=== PATIENT | female | born 1970 | race Hispanic/Latino ===

== ENCOUNTER 2019-11-11 21:49 | Emergency (ER) | payer OTHER ==
[2019-11-11] MEDS ORDERED: ASPIRIN 325 MG TABLET ONE (22:00)
== END 2019-11-12 01:41 | disposition home or self-care (01) ==
LOC: EDH 21:49
DX: R07.89 Other chest pain (principal)

== ENCOUNTER 2022-08-11 00:04 | Inpatient (IN) | payer OTHER ==
[~2022-08-11] VITALS: Ht 152.4 cm; Wt 56.4 kg
[2022-08-11] MEDS ORDERED: ONDANSETRON 4MG INJ IVP ONE ×2 (00:30→03:00)
[2022-08-11] MEDS ORDERED: FAMOTIDINE 20MG VIAL IV ONE ×2 (00:30→00:34)
[2022-08-11] MEDS ORDERED: LACTATED RINGERS 1000ML 1,000 ML IV ONE (00:30)
[2022-08-11] MEDS ORDERED: MORPHINE 2 MG SYG IVP ONE (00:30)
[2022-08-11] MEDS ORDERED: ONDANSETRON 4MG INJ ONE (00:34)
[2022-08-11] MEDS ORDERED: MORPHINE 2 MG SYG ONE (00:34)
[2022-08-11 01:00] LABS: BASOPHILS % (AUTO) 0.5 % (0.0-5.0); EOSINOPHILS % (AUTO) 0.5 % (0.0-8.0); LYMPHOCYTES % (AUTO) 20.5 % (21.0-51.0); MEAN CORPUSCULAR HGB CONC 34.2 g/dL (32.0-36.0); MEAN CORPUSCULAR VOLUME 81.7 fL (79-99); MONOCYTES % (AUTO) 4.5 % (3.0-13.0); NEUTROPHILS % (AUTO) 73.7 % (40.0-77.0); PLATELET COUNT (AUTO) 334 K/uL (130-400); RED BLOOD CELL COUNT(AUTO) 4.65 MIL/uL (4.00-5.50); RED CELL DISTRIBUTION WIDTH 12.8 % (11.0-15.5); WHITE BLOOD COUNT (AUTO) 7.8 K/uL (4.8-10.8)
[2022-08-11 01:11] LABS: CREATININE 0.6 mg/dL (0.5-1.5); POTASSIUM 4.1 mmol/L (3.5-5.1)
[2022-08-11 01:15] LABS: ALBUMIN 4.2 g/dL (3.5-5.0)
[2022-08-11] MEDS ORDERED: NITROGLYCERIN 0.4 MG SL TAB SL ONE (01:29)
[2022-08-11 01:33] LABS: BILIRUBIN,URINE NEGATIVE (NEGATIVE); COLOR,URINE LIGHT-YELLOW (YELLOW); GLUCOSE, URINE (UA) NEGATIVE (NEGATIVE); KETONES,URINE 5 mg/dL (NEGATIVE); LEUKOCYTE ESTERASE ,URINE NEGATIVE Leu/uL (NEGATIVE); NITRATE,URINE NEGATIVE (NEGATIVE); OCCULT BLOOD,URINE NEGATIVE (NEGATIVE); PROTEIN,URINE NEGATIVE (NEGATIVE); UROBILINOGEN,URINE 0.2 mg/dL (0.2-1.0)
[2022-08-11 01:35] LABS: APPEARANCE,URINE SLIGHTLY CLOUDY (CLEAR)
[2022-08-11] MEDS ORDERED: IOHEXOL 350 MG/ML 100ML INFUS..BTL IV ONE (01:43)
[2022-08-11] MEDS: NITROGLYCERIN 0.4 MG SL TAB SL PRN ×2 (01:45→03:35)
[2022-08-11 01:53] LABS: BACTERIA,URINE RARE /HPF (None Seen); MUCUS,URINE RARE LPF (None Seen); SQUAMOUS EPITHELIAL CELL,UR RARE /HPF (0-2)
[2022-08-11] MEDS ORDERED: HYDROMORPHONE 0.5 MG SYG (0.5MG/0.5ML) IVP ONE (03:00)
[2022-08-11 03:08] LABS: AMPHET/METH SCREEN,URINE NEGATIVE (NEGATIVE); BARBITURATE SCREEN, URINE NEGATIVE (NEGATIVE); BENZODIAZEPINES SCREEN,URINE NEGATIVE (NEGATIVE); CANNABINOID SCREEN,URINE NEGATIVE (NEGATIVE); COCAINE SCREEN,URINE NEGATIVE (NEGATIVE); OPIATE SCREEN,URINE NEGATIVE (NEGATIVE); PHENCYCLIDINE SCREEN,URINE NEGATIVE (NEGATIVE)
[2022-08-11] MEDS ORDERED: ASPIRIN 81MG CHEW TAB PO ONE (04:00)
[2022-08-11] MEDS ORDERED: LIDOCAINE HCL 2% VISCOUS 15 ML UDCUP PO ONE (04:00)
[2022-08-11] MEDS ORDERED: ONDANSETRON 4MG INJ IV PRN (04:00)
[2022-08-11] MEDS ORDERED: MORPHINE 2 MG SYG IV PRN (04:00)
[2022-08-11] MEDS ORDERED: ACETAMINOPHEN 325 MG TAB PO PRN ×2 (04:00)
[2022-08-11] MEDS ORDERED: DICYCLOMINE HCL 10 MG/5 ML ML PO ONE (04:00)
[2022-08-11] MEDS ORDERED: MAG/ALUM/SIMETH 30 ML UDCUP PO ONE (04:00)
[2022-08-11] MEDS ORDERED: HYDROMORPHONE 1 MG INJ IV PRN (04:00)
[2022-08-11] MEDS: NITROGLYCERIN 1GM OINT 1 INCH/1GM TD SCH ×3 (04:40→20:00)
[2022-08-11] MEDS: LACTATED RINGERS 1000ML 1,000 ML IV SCH ×2 (04:54→15:51)
[2022-08-11 08:43] VITALS: BP 105/57
[2022-08-11] MEDS: ASPIRIN 81MG CHEW TAB PO SCH (08:56)
[2022-08-11] MEDS: ENOXAPARIN SODIUM 40 MG/0.4 ML SYRINGE SQ SCH (08:56)
[2022-08-11] MEDS: FAMOTIDINE 20MG TAB PO SCH ×2 (08:56→20:51)
[2022-08-11 12:48] VITALS: BP 106/53
[2022-08-11 16:11] VITALS: BP 109/54
[2022-08-11 19:53] VITALS: BP 119/61
[2022-08-11] MEDS ORDERED: METOCLOPRAMIDE 10 MG/2 ML VIAL IVP PRN (20:00)
[2022-08-11 23:26] VITALS: BP 125/60
[2022-08-12] MEDS: NITROGLYCERIN 1GM OINT 1 INCH/1GM TD SCH (02:56)
[2022-08-12] MEDS: LACTATED RINGERS 1000ML 1,000 ML IV SCH (03:36)
[2022-08-12 03:40] VITALS: BP 109/59
[2022-08-12 04:45] LABS: BASOPHILS % (AUTO) 0.7 % (0.0-5.0); EOSINOPHILS % (AUTO) 1.4 % (0.0-8.0); HEMATOCRIT 33.9 % (36-48); LYMPHOCYTES % (AUTO) 39.8 % (21.0-51.0); MEAN CORPUSCULAR HEMOGLOBIN 28.3 pg (27.0-33.0); MEAN CORPUSCULAR VOLUME 85.6 fL (79-99); MONOCYTES % (AUTO) 8.2 % (3.0-13.0); NEUTROPHILS % (AUTO) 49.7 % (40.0-77.0); PLATELET COUNT (AUTO) 259 K/uL (130-400); RED BLOOD CELL COUNT(AUTO) 3.96 MIL/uL (4.00-5.50); RED CELL DISTRIBUTION WIDTH 12.8 % (11.0-15.5); WHITE BLOOD COUNT (AUTO) 4.3 K/uL (4.8-10.8)
[2022-08-12 05:11] LABS: CREATININE 0.7 mg/dL (0.5-1.5); MAGNESIUM 1.9 mg/dL (1.80-2.40); PHOSPHORUS 3.4 mg/dL (2.5-4.9); POTASSIUM 3.7 mmol/L (3.5-5.1)
[2022-08-12 08:00] VITALS: BP 115/74
[2022-08-12] MEDS: ENOXAPARIN SODIUM 40 MG/0.4 ML SYRINGE SQ SCH (08:04)
[2022-08-12] MEDS: ASPIRIN 81MG CHEW TAB PO SCH (08:05)
[2022-08-12] MEDS: FAMOTIDINE 20MG TAB PO SCH (08:05)
[2022-08-12] MEDS ORDERED: AZIT500T4 PO (09:50)
== END 2022-08-12 11:35 | disposition home or self-care (01) | DRG 153 ==
LOC: EDH 00:04 → EDHIP 00:05 → 2DH 05:05 → 3AH 08-12 10:14
PROVIDERS: ADMIT Internal Medicine; ATTEND Internal Medicine
DX: J02.9 Acute pharyngitis, unspecified (principal); R77.8 Other specified abnormalities of plasma proteins; Z79.82 Long term (current) use of aspirin; Z90.710 Acquired absence of both cervix and uterus
CPT/HCPCS: 36415; 74177; 80048; 80053; 80305; 81001; 82150; 83690; 83735; 84100; 84145; 84484; 85025; 85651; 86140; 93005; G0378; J1170; J1650; J2405; J3490; Q9967